=== PATIENT | male | born 1995 | race Caucasian/White ===

== ENCOUNTER 2017-06-25 18:34 | Emergency (ER) | payer OTHER ==
[~2017-06-25] VITALS: Ht 187.9 cm; Wt 74.8 kg
[~2017-06-25 18:34] MED LIST: ATARAX25 MG PO; AUGMENTIN 875-875 MG PO; BACTRIM DS 8001 TA1 PO; ELIMITE 5%60 GM PO; KETOROLAC10 MG PO; VENTOLIN H0.09 MG/AC INH; ZANTAC150 MG PO; ZYRTEC10 M1 PO; ZYRTEC10 M3 PO
[2017-06-25 18:39] VITALS: BP 154/68
[2017-06-25] MEDS ORDERED: Peridex 473 ML473 ML PO (18:54)
[2017-06-25] MEDS ORDERED: PENICILLIN VK500 MG PO (18:54)
[2017-06-25] MEDS ORDERED: NAPROSYN500 MG PO (18:54)
== END 2017-06-25 19:13 | disposition home or self-care (01) ==
LOC: ED 18:34
DX: K02.9 Dental caries, unspecified (principal); R03.0 Elevated blood-pressure reading, without diagnosis of hypertension; Z88.8 Allergy status to other drugs, medicaments and biological substances; Z79.899 Other long term (current) drug therapy

== ENCOUNTER 2018-07-15 19:05 | Emergency (ER) | payer OTHER ==
[~2018-07-15] VITALS: Ht 187.9 cm; Wt 74.8 kg
[~2018-07-15 19:05] MED LIST changes: +NAPROSYN500 MG PO; +PENICILLIN VK500 MG PO; +Peridex 473 ML473 ML PO
[2018-07-15 19:10] VITALS: BP 122/75
[2018-07-17 11:02] LABS: HEPATITIS B SURFACE AG Negative (Negative); HEPATITIS C VIRUS ANTIBODY <0.1 s/co (0.0-0.9)
== END 2018-07-15 19:41 | disposition home or self-care (01) ==
LOC: ED 19:05
PROVIDERS: Student in an Organized Health Care Education/Training Program
DX: Z03.89 Encounter for observation for other suspected diseases and conditions ruled out (principal); Z77.21 Contact with and (suspected) exposure to potentially hazardous body fluids; Z79.899 Other long term (current) drug therapy; Z88.8 Allergy status to other drugs, medicaments and biological substances

== ENCOUNTER 2019-02-11 22:16 | Emergency (ER) | payer OTHER ==
[~2019-02-11] VITALS: Ht 190.5 cm; Wt 74.8 kg
[2019-02-11 22:19] VITALS: BP 127/74
== END 2019-02-11 22:56 | disposition home or self-care (01) ==
LOC: ED 22:16
DX: S05.01XD Injury of conjunctiva and corneal abrasion without foreign body, right eye, subsequent encounter (principal); Z79.899 Other long term (current) drug therapy; Z88.6 Allergy status to analgesic agent; W22.8XXD Striking against or struck by other objects, subsequent encounter

== ENCOUNTER 2020-02-07 10:08 | Emergency (ER) | payer OTHER ==
[~2020-02-07] VITALS: Ht 190.5 cm; Wt 72.6 kg
[2020-02-07 10:16] VITALS: BP 102/73
== END 2020-02-07 12:07 | disposition home or self-care (01) ==
LOC: ED 10:08
DX: S60.221A Contusion of right hand, initial encounter (principal); J45.909 Unspecified asthma, uncomplicated; Z88.8 Allergy status to other drugs, medicaments and biological substances; X50.9XXA Other and unspecified overexertion or strenuous movements or postures, initial encounter; Y93.89 Activity, other specified; Y92.89 Other specified places as the place of occurrence of the external cause; Y99.8 Other external cause status

== ENCOUNTER → 2020-07-08 | Outpatient (CLI) | payer OTHER | END | disposition home or self-care (01) | LOC: RAD 15:44 | PROVIDERS: ATTEND Nurse Practitioner Family | DX: R05 Cough (principal) ==

== ENCOUNTER → 2021-04-17 | Outpatient (CLI) | payer OTHER ==
[2021-04-17 15:33] LABS: BASO % 0.3 % (0.0-1.0); EOS # 0.1 10*3/uL (0.0-0.4); HEMATOCRIT 49.3 % (42.0-52.0); LYMPH % 30.6 % (27.0-41.0); MEAN CELL VOLUME 82.7 fl (80.0-94.0); MEAN CORPUSCULAR HGB 27.9 pg (27.0-31.0); MEAN CORPUSCULAR HGB CONC 33.7 g/dl (33.0-37.0); MONO # 0.5 10*3/uL (0.1-1.0); MONO % 7.1 % (3.0-9.0); NEUT # 3.9 10*3/uL (2.3-7.9); NEUT % 59.7 % (47.0-73.0); PLATELET COUNT AUTOMATED 242 10*3/uL (130-400); RED BLOOD COUNT 5.96 10*6/uL (4.50-5.90); RED CELL DISTRI WIDTH 12.7 % (0-14.5); WHITE BLOOD COUNT 6.5 10*3/uL (4.8-10.8)
[2021-04-17 15:50] LABS: ALBUMIN 4.2 gm/dl (3.1-4.5); ALKALINE PHOSPHATASE 66 U/L (45-117); BILIRUBIN, DIRECT 0.2 mg/dL (0.0-0.2); BUN 16 mg/dl (7-24); CHLORIDE 107 mmol/L (98-107); CREATININE 0.71 mg/dL (0.70-1.30); POTASSIUM 3.4 mmol/L (3.5-5.1); SGOT/AST 7 IU/L (3-35); SGPT/ALT 18 U/L (12-78); SODIUM 141 mmol/L (136-145); TOTAL PROTEIN 7.6 gm/dL (6.4-8.2)
[2021-04-19 15:07] LABS: t-TRANSGLUTAMINASE (tTG) IGA <2 U/mL (0-3)
== END | disposition home or self-care (01) ==
LOC: LAB 15:10
PROVIDERS: ATTEND Nurse Practitioner Family
DX: R63.4 Abnormal weight loss (principal)

== ENCOUNTER 2021-04-25 21:46 | Emergency (ER) | payer OTHER ==
[~2021-04-25] VITALS: Ht 190.5 cm; Wt 65.8 kg
[2021-04-25 22:35] VITALS: BP 127/84
[2021-04-26] MEDS ORDERED: Motrin,Rufen800 MG PO (00:33)
== END 2021-04-26 01:47 | disposition home or self-care (01) ==
LOC: ED 21:46
DX: S93.601A Unspecified sprain of right foot, initial encounter (principal); F17.200 Nicotine dependence, unspecified, uncomplicated; Z88.6 Allergy status to analgesic agent; X50.1XXA Overexertion from prolonged static or awkward postures, initial encounter; Y93.01 Activity, walking, marching and hiking; Y92.89 Other specified places as the place of occurrence of the external cause; Y99.9 Unspecified external cause status

== ENCOUNTER 2021-10-15 15:36 | Emergency (ER) | payer OTHER ==
[~2021-10-15] VITALS: Ht 187.9 cm; Wt 59.0 kg
[~2021-10-15 15:36] MED LIST changes: +Motrin,Rufen800 MG PO
[2021-10-15 15:47] VITALS: BP 120/61
[2021-10-15] MEDS ORDERED: ZYRTEC10 M3 PO (15:48)
[2021-10-15 17:49] LABS: BASO % 0.3 % (0.0-1.0); EOS # 0.1 10*3/uL (0.0-0.4); LYMPH # 1.7 10*3/uL (1.3-4.4); LYMPH % 18.8 % (27.0-41.0); MEAN CELL VOLUME 83.6 fl (80.0-94.0); MEAN CORPUSCULAR HGB 27.9 pg (27.0-31.0); MEAN CORPUSCULAR HGB CONC 33.3 g/dl (33.0-37.0); MEAN PLATELET VOLUME 9.5 fl (9.6-12.3); MONO # 0.6 10*3/uL (0.1-1.0); MONO % 6.1 % (3.0-9.0); NEUT # 6.7 10*3/uL (2.3-7.9); NEUT % 73.5 % (47.0-73.0); PLATELET COUNT AUTOMATED 234 10*3/uL (130-400); RED BLOOD COUNT 5.74 10*6/uL (4.50-5.90); RED CELL DISTRI WIDTH 13.1 % (0-14.5); WHITE BLOOD COUNT 9.2 10*3/uL (4.8-10.8)
[2021-10-15] MEDS ORDERED: AUGMENTIN 875875 MG PO (18:01)
[2021-10-15 18:04] LABS: ALBUMIN 4.5 gm/dl (3.1-4.5); ALKALINE PHOSPHATASE 74 U/L (45-117); BUN 15 mg/dl (7-24); CHLORIDE 106 mmol/L (98-107); CREATININE 0.76 mg/dL (0.70-1.30); POTASSIUM 3.5 mmol/L (3.5-5.1); SGOT/AST 13 IU/L (3-35); SGPT/ALT 20 U/L (12-78); SODIUM 140 mmol/L (136-145); TOTAL PROTEIN 7.6 gm/dL (6.4-8.2)
== END 2021-10-15 18:23 | disposition home or self-care (01) ==
LOC: ED 15:36
PROVIDERS: Student in an Organized Health Care Education/Training Program
DX: S61.052A Open bite of left thumb without damage to nail, initial encounter (principal); W55.01XA Bitten by cat, initial encounter; Y93.89 Activity, other specified; Y92.89 Other specified places as the place of occurrence of the external cause; Y99.8 Other external cause status

== ENCOUNTER → 2022-06-17 | Outpatient (CLI) | payer OTHER ==
[~2022-06-17] MED LIST changes: +AUGMENTIN 875875 MG PO
== END | disposition home or self-care (01) ==
LOC: LAB 12:44
PROVIDERS: ATTEND Nurse Practitioner Family
DX: S80.211A Abrasion, right knee, initial encounter (principal); X58.XXXA Exposure to other specified factors, initial encounter; Y93.89 Activity, other specified; Y92.89 Other specified places as the place of occurrence of the external cause; Y99.8 Other external cause status

== ENCOUNTER → 2025-05-23 | Outpatient (CLI) | payer OTHER ==
[2025-05-23 08:39] LABS: BASO # 0.0 10*3/uL (0.0-0.1); BASO % 0.5 % (0.0-1.0); EOS # 0.4 10*3/uL (0.0-0.4); EOS % 6.0 % (1.0-4.0); MEAN CELL VOLUME 86.4 fl (80.0-94.0); MEAN CORPUSCULAR HGB 28.6 pg (27.0-31.0); MEAN PLATELET VOLUME 9.5 fl (9.6-12.3); MONO # 0.4 10*3/uL (0.1-1.0); MONO % 6.9 % (3.0-9.0); NEUT # 3.1 10*3/uL (2.3-7.9); NEUT % 52.4 % (47.0-73.0); NUCLEATED RED BLOOD CELL 0.0 % (0.0-0.0); NUCLEATED RED BLOOD CELL 0.0 10*3/uL (0.0-0.0); PLATELET COUNT AUTOMATED 200 10*3/uL (130-400); RED CELL DISTRI WIDTH 12.7 % (0-14.5)
[2025-05-23 09:36] LABS: BUN 14 mg/dl (9-23); SGPT/ALT 14 U/L (5-49); T3 UPTAKE 37.8 % (22.4-36.7); THYROXINE (T4) TOTAL 6.2 ug/dl (4.5-10.9)
[2025-05-23 09:37] LABS: VITAMIN D, 25-HYDROXY 38.7 ng/mL (30-100)
== END | disposition home or self-care (01) ==
LOC: LAB 08:25
PROVIDERS: ATTEND Nurse Practitioner Psychiatric/Mental Health
DX: Z51.81 Encounter for therapeutic drug level monitoring (principal); Z79.899 Other long term (current) drug therapy

== ENCOUNTER 2025-06-02 09:16 | Emergency (ER) | payer OTHER ==
[~2025-06-02] VITALS: Ht 190.5 cm; Wt 68.0 kg
[2025-06-02 09:24] VITALS: BP 119/67
[2025-06-02] MEDS ORDERED: CYCLOBENZAPRINE10 MG PO (10:53)
== END 2025-06-02 11:02 | disposition home or self-care (01) ==
LOC: ED 09:16
DX: S16.1XXA Strain of muscle, fascia and tendon at neck level, initial encounter (principal); Z88.8 Allergy status to other drugs, medicaments and biological substances; Z79.899 Other long term (current) drug therapy; X58.XXXA Exposure to other specified factors, initial encounter; Y93.55 Activity, bike riding; Y92.410 Unspecified street and highway as the place of occurrence of the external cause; Y99.8 Other external cause status

== ENCOUNTER 2025-08-06 15:34 | Emergency (ER) | payer OTHER ==
[~2025-08-06] VITALS: Ht 187.9 cm; Wt 68.0 kg
[~2025-08-06 15:34] MED LIST changes: +CYCLOBENZAPRINE10 MG PO
[2025-08-06 15:45] VITALS: BP 111/64
[2025-08-06] MEDS ORDERED: Tetracaine Hydrochloride 0.5% 4 ML BOT OPH ONE (16:00)
[2025-08-06] MEDS ORDERED: ERYTHROMYCIN OPH1 GM OPH (16:20)
== END 2025-08-06 16:35 | disposition home or self-care (01) ==
LOC: ED 15:34
DX: H10.9 Unspecified conjunctivitis (principal); J45.909 Unspecified asthma, uncomplicated; Z88.1 Allergy status to other antibiotic agents